=== PATIENT | female | born 1950 | race African-American/Black ===

== ENCOUNTER 2016-07-29 23:14 | Inpatient (IN) | payer MEDICARE, MEDICAID ==
[~2016-07-29] VITALS: Ht 162.6 cm; Wt 44.7 kg
[2016-07-29 23:46] VITALS: Ht 162.6 cm; Wt 44.7 kg
[2016-07-29 23:50] VITALS: TEMP 97.8
[2016-07-29] MEDS ORDERED: SOD CHLORIDE 0.9% 1,000 ML IV STA (23:50)
[2016-07-30] VITALS (12 sets, daily range): BP systolic 114–155; BP diastolic 58–78; PULSE 78–96; RESP 16–22; BMI 16.9
[2016-07-30] MEDS ORDERED: KETOROLAC 15 MG INJ IV STA (00:04)
[2016-07-30 00:53] LABS: ADD SCAN DIFF NO
[2016-07-30 00:55] LABS: BASOPHILS % 0.3 % (0.0-2.0); EOSINOPHILS % 0.4 % (0.0-7.0); HEMATOCRIT 40.4 % (37.0-47.0); HEMOGLOBIN 13.1 g/dl (12.0-16.0); LYMPHOCYTES # 3.2 10^3/ul (0.8-2.9); LYMPHOCYTES % 43.4 % (15.0-51.0); MEAN CORPUSCULAR HEMOGLOBIN 31.4 pg (29.0-33.0); MEAN CORPUSCULAR HGB CONC 32.4 g/dl (32.0-37.0); MEAN CORPUSCULAR VOLUME 96.9 fl (82.0-101.0); MONOCYTE # 0.7 10^3/ul (0.3-0.9); MONOCYTES % 8.8 % (0.0-11.0); NEUTROPHIL # 3.4 10^3/ul (1.6-7.5); NEUTROPHILS % 46.7 % (39.0-77.0); PLATELET COUNT 260 10^3/UL (140-415); RED BLOOD COUNT 4.17 10^6/ul (4.20-5.40); RED CELL DISTRIBUTION WIDTH 12.3 % (11.5-14.5); WHITE BLOOD COUNT 7.4 10^3/ul (4.8-10.8)
[2016-07-30 01:04] LABS: CHLORIDE 103 mmol/L (97-110)
[2016-07-30 01:05] LABS: INR 0.94; PARTIAL THROMBOPLASTIN TIME 25.7 Sec (25.0-35.0); POTASSIUM 3.6 mmol/L (3.5-5.1); PROTIME 12.6 Sec (12.2-14.2); SODIUM 143 mmol/L (135-144)
--- NOTE | 2016-07-30 01:05 | RADRPT ---
PROCEDURE: Portable chest x-ray. CLINICAL INDICATION: Syncope. TECHNIQUE: Portable AP view of the chest. COMPARISON: None. FINDINGS: No pulmonary edema or conolidation is identified. The cardiac silhouette is magnified. There are ao rtic calcifications. No pleural effusion is seen. There is no pneumothorax. IMPRESSION: 1. No evidence of acute cardiopulmonary disease. 2. Aortic atherosclerosis. RPTAT: HTAR .Andres Cruz MD, MD Date Time Electronically viewed and signed by .Andres Cruz MD, on 07/30/2016 01:04 .R/
[2016-07-30 01:07] LABS: CREATININE 0.75 mg/dl (0.44-1.00)
[2016-07-30 01:08] LABS: ANION GAP 16 (8-16); BLOOD UREA NITROGEN 13 mg/dl (7-20); CALCIUM 9.1 mg/dl (8.4-10.2); CARBON DIOXIDE 28 mmol/L (21-31); GLUCOSE 103 mg/dl (70-220)
[2016-07-30 01:21] LABS: TROPONIN-I < 0.012 ng/ml (0.00-0.12)
--- NOTE | 2016-07-30 01:43 | RADRPT ---
PROCEDURE: CT head, without contrast. CLINICAL INDICATION: Syncope. TECHNIQUE: Noncontrast CT examination of the head, with axial, sagittal and coronal reformatted im ages. Automated dose exposure control was employed. CTDI: 44.81 mGy and DLP: 720.23 mGy-cm. COMPARISON: None. FINDINGS: Chronic changes of atrophy and small vessel disease white matter. No acute hemorrhage. Subarachnoid spaces are substantially preserved and symmetric. Ventricles ar e unremarkable. No mass effect. Mahoney-white matter distinction is preserved without evident decreased attenuation t o suggest acute or recent infarct. Mucous retention in the dependent left sphenoid sinus. Sinuses and osseous structures are otherwise unremarkable. IMPRESSION: 1. Mucous retention in the left sphenoid sinus. 2. Chronic changes of atrophy and small vessel disease white matter. 3. Otherwise, no acute process in the head. RPTAT: UU Physician Jak Date Time Electronically viewed and signed by Physician Jak on 07/30/2016 01:43 RS/
--- NOTE | 2016-07-30 02:43 | ERA ---
ER Documentation Chief Complaint Date/Time DATE: 07/30/16 TIME: 02:42 Chief Complaint R39, syncopal episode at home HPI This is a 66-year-old female suffered a syncopal episode at home while having dinner. No chest pain. No fevers or chills. She did notice a blood pressure drop. This happened while she was eating. No palpitations. No other current complaints. ROS All systems reviewed and are negative except as per history of present illness. PMhx/Soc History of Surgery: No Anesthesia Reaction: No Hx Neurological Disorder: No Hx Respiratory Disorders: No Hx Cardiac Disorders: No Hx Psychiatric Problems: Yes (ANIXIETY) Hx Miscellaneous Medical Probl: Yes (MS) Hx Alcohol Use: No Hx Substance Use: No Hx Tobacco Use: No Smoking Status: Never smoker Physical Exam Vitals Vital Signs Date Time Temp Pulse Resp B/P Pulse Ox O2 Delivery O2 Flow Rate FiO2 07/29/16 23:46 97.8 54 16 125/73 100 Physical Exam Const: [] Head: Atraumatic Eyes: Normal Conjunctiva ENT: Normal External Ears, Nose and Mouth. Neck: Full range of motion..~ No meningismus. Resp: Clear to auscultation bilaterally Cardio: Regular rate and rhythm, no murmurs Abd: Soft, non tender, non distended. Normal bowel sounds Skin: No petechiae or rashes Back: No midline or flank tenderness Ext: No cyanosis, or edema Neur: Awake and alert Psych: Normal Mood and Affect Result Diagram: 07/30/16 0022 07/30/16 0022 Results 24 hrs Laboratory Tests Test 07/30/16 00:22 Activated Partial Thromboplast Time 25.7Sec Anion Gap 16 Basophils # 0.010^3/ul Basophils % 0.3% Blood Urea Nitrogen 13mg/dl Calcium Level 9.1mg/dl Carbon Dioxide Level 28mmol/L Chloride Level 103mmol/L Creatinine 0.75mg/dl Eosinophils # 0.010^3/ul Eosinophils % 0.4% Glucose Level 103mg/dl Hematocrit 40.4% Hemoglobin 13.1g/dl INR International Normalized Ratio 0.94 Lymphocytes # 3.210^3/ul Lymphocytes % 43.4% Mean Corpuscular Hemoglobin 31.4pg Mean Corpuscular Hemoglobin Concent 32.4g/dl Mean Corpuscular Volume 96.9fl Mean Platelet Volume 11.0fl Monocytes # 0.710^3/ul Monocytes % 8.8% Neutrophils # 3.410^3/ul Neutrophils % 46.7% Nucleated Red Blood Cells # 0.010^3/ul Nucleated Red Blood Cells % 0.0/100WBC Platelet Count 57097^3/UL Potassium Level 3.6mmol/L Prothrombin Time 12.6Sec Prothrombin Time Ratio 1.0 Red Blood Count 4.1710^6/ul Red Cell Distribution Width 12.3% Sodium Level 143mmol/L Troponin I < 0.012ng/ml White Blood Count 7.410^3/ul Current Medications Medications (Trade) Dose Ordered Sig/Emelina Route PRN Reason Start Time Stop Time Status Last Admin Dose Admin Sodium Chloride (NS) 1,000 ml @ 1,000 mls/hr Q1H STAT IV 07/29/16 23:50 07/30/16 00:49 DC 07/30/16 00:25 Ketorolac Tromethamine (Toradol) 15 mg ONCE STAT IV 07/30/16 00:04 07/30/16 00:05 DC 07/30/16 00:25 Procedures/MDM EKG: Rate/Rhythm: Normal Sinus Rhythm QRS, ST, T-waves: No changes consistent w/ acute ischemia Impression: No evidence of ischemia or arrhythmia Chest X-ray 1V Interpreted by me: Soft Tissue: No acute abnormalities Bones: No acute abnormalities Mediastinum/Cardiac Silhouette/Lungs: No acute abnormalities Patient's syncopal symptoms are unstable at this time and require inpatient workup. No evidence of PE or dissection at this time but occult ischemia or fatal dysrhythmia cannot be ruled out. Departure Diagnosis: Primary Impression: Syncope Qualified Code: R55 - Syncope, unspecified syncope type Condition: Serious MARGAUX BAIRDBrandon Jul 30, 2016 02:43
--- NOTE | 2016-07-30 03:21 | HP ---
Date/Time of Note Date/Time of Note DATE: 07/30/16 TIME: Assessment/Plan VTE Prophylaxis VTE Prophylaxis Intervention: other (Lovenox) Assessment/Plan Assessment/Plan 1) Syncope - Neurologic seems more likely than Cardiac . . . An Absance-type Seizure Qualified Code: R55 - Syncope, unspecified syncope type - Admit to Telemetry - Serial CardiacEnzymes - EEG - Neurology Consult - Cardiology Consult if Indicated 2) Multiple Sclerosis - Continue routine medications HPI/ROS Admit Date/Time Admit Date/Time 07/30/16 0152 Hx of Present Illness Chief Complaint R39, syncopal episode at home HPI This is a 66-year-old female suffered a syncopal episode at home while having dinner in the presence of her daughter who accompanies her now. She was seated in her chair at the table when patient states she started to feel like she was going to pass out. The room was not spinning. No nausea. No chest pain. No fevers or chills. Her daughter states that she leaned back in her chair a bit. Her eyes stayed open, but they rolled uo and to the right and her whole body became stiff. This lasted for a minute or two. Then, she woke up but was confused and incoherent. This lasted about a minute. Patient does not remember any of this. No loss of bowel or bladder control. No tremors or jerking of the extremities. She never fell. Right now, she feels back to normal. She had a similar episode about a week ago, but she was walking and did fall down. No medical attention was sought at that time. ROS General: Admits: Poor Appetite as usual. Has to take medication to have any appetite. Denies: Fever, Chills, Abnormal Weight Loss, Generalized Body Aches Eyes: Admits: Denies: Blurry Vision, Double Vision HENT: Admits: Denies: Ear Pain/Pressure, Runny/Stuffy Nose, Sore Throat Cardiovascular: Admits: Denies: Chest Pain, Palpitations, Leg Swelling Pulmonary: Admits: Denies: Cough, Wheeze, Shortness of Breath Gastrointestinal: Admits: Denies: Abdominal Pain, Nausea, Vomiting, Diarrhea, Blood in Stool, Black-Colored Stool Urogenital: Admits: Denies: Burning with Urination, Urinary Frequency Musculoskeletal: Admits: Denies: Joint Pain, Joint Swelling, Muscle Pain Neurological: Admits: Denies: Headache, Dizziness, Numbness, Tingling, Shooting Pains Integumentary: Admits: Denies: Rash, Itch Endocrine: Admits: Denies: Excessive Thirst, Excessive Hunger, Intolerant to Cold , Intolerant to Heat Psychiatric: Admits: Anxiety Denies: Depression PMH/Family/Social Past Medical History Anxiety; Multiple Sclerosis Past Surgical History Past Surgical Hx: no surgical history Family History Significant Family History: no pertinent family hx Social History Smoking Status: Never smoker Exam/Review of Systems Vital Signs Vitals Vital Signs Date Time Temp Pulse Resp B/P Pulse Ox O2 Delivery O2 Flow Rate FiO2 07/29/16 23:46 97.8 54 16 125/73 100 Exam Exam General: Very slender 66 year old Black female, alert and oriented, in no acute distress Eyes: Sclera White, EOMI HENT: Normocephalic/Atraumatic, External Ears/Nose Normal, Moist Mucus Membranes Neck: Supple, Trachea Midline Cardiovascular: Normal Rate, Normal Rhythm, Normal S1 and S2, No Murmur, No Extra Sounds Pulmonary: Clear to Auscultation Bilaterally, Normal Respiratory Effort, No Rales, Rhonchi or Wheezes Gastrointestinal: Normoactive Bowel Sounds, Soft, Non-Tender/Non-Distended, No Hepatosplenomegaly Appreciated, No Pulsatile Masses Urogenital: Deferred Musculoskeletal: Decreased Muscle Bulk and Normal Tone. Bilateral UE/LE strength +5/5 and equal, including hand quality control specialist strength. Neurological: CN II - XII Intact, Non-Focal, Speech Normal Integumentary: Normal Moisture and Temperature, Good Turgor, No Jaundice, No Rash Lymphatic: No Cervical Lymphadenopathy Psychiatric: Appropriate Mood and Affect, Good Eye Contact Labs Result Diagram: 07/30/16 0022 07/30/16 0022 Medications Medications Current Medications Medications (Trade) Dose Ordered Sig/Emelina Route PRN Reason Start Time Stop Time Status Last Admin Dose Admin Sodium Chloride (NS) 1,000 ml @ 1,000 mls/hr Q1H STAT IV 07/29/16 23:50 07/30/16 00:49 DC 07/30/16 00:25 Ketorolac Tromethamine (Toradol) 15 mg ONCE STAT IV 07/30/16 00:04 07/30/16 00:05 DC 07/30/16 00:25 Procedures Procedures Laboratory Tests Test 07/30/16 00:22 Activated Partial Thromboplast Time 25.7Sec Anion Gap 16 Basophils # 0.010^3/ul Basophils % 0.3% Blood Urea Nitrogen 13mg/dl Calcium Level 9.1mg/dl Carbon Dioxide Level 28mmol/L Chloride Level 103mmol/L Creatinine 0.75mg/dl Eosinophils # 0.010^3/ul Eosinophils % 0.4% Glucose Level 103mg/dl Hematocrit 40.4% Hemoglobin 13.1g/dl INR International Normalized Ratio 0.94 Lymphocytes # 3.210^3/ul Lymphocytes % 43.4% Mean Corpuscular Hemoglobin 31.4pg Mean Corpuscular Hemoglobin Concent 32.4g/dl Mean Corpuscular Volume 96.9fl Mean Platelet Volume 11.0fl Monocytes # 0.710^3/ul Monocytes % 8.8% Neutrophils # 3.410^3/ul Neutrophils % 46.7% Nucleated Red Blood Cells # 0.010^3/ul Nucleated Red Blood Cells % 0.0/100WBC Platelet Count 62611^3/UL Potassium Level 3.6mmol/L Prothrombin Time 12.6Sec Prothrombin Time Ratio 1.0 Red Blood Count 4.1710^6/ul Red Cell Distribution Width 12.3% Sodium Level 143mmol/L Troponin I < 0.012ng/ml White Blood Count 7.410^3/ul EKG: Interpreted by ER physician Rate/Rhythm: Normal Sinus Rhythm QRS, ST, T-waves: No changes consistent w/ acute ischemia Impression: No evidence of ischemia or arrhythmia RADIOLOGY: PROCEDURE: CT head, without contrast. CLINICAL INDICATION: Syncope. TECHNIQUE: Noncontrast CT examination of the head, with axial, sagittal and coronal reformatted images. Automated dose exposure control was employed. CTDI: 44.81 mGy and DLP: 720.23 mGy-cm. COMPARISON: None. FINDINGS: Chronic changes of atrophy and small vessel disease white matter. No acute hemorrhage. Subarachnoid spaces are substantially preserved and symmetric. Ventricles are unremarkable. No mass effect. Mahoney-white matter distinction is preserved without evident decreased attenuation to suggest acute or recent infarct. Mucous retention in the dependent left sphenoid sinus. Sinuses and osseous structures are otherwise unremarkable. IMPRESSION: 1. Mucous retention in the left sphenoid sinus. 2. Chronic changes of atrophy and small vessel disease white matter. 3. Otherwise, no acute process in the head. PROCEDURE: Portable chest x-ray. CLINICAL INDICATION: Syncope. TECHNIQUE: Portable AP view of the chest. COMPARISON: None. FINDINGS: No pulmonary edema or conolidation is identified. The cardiac silhouette is magnified. There are aortic calcifications. No pleural effusion is seen. There is no pneumothorax. IMPRESSION: 1. No evidence of acute cardiopulmonary disease. 2. Aortic atherosclerosis. GIORGI LEDEZMA DO Jul 30, 2016 03:21
[2016-07-30] MEDS ORDERED: AMI25 PO (04:23)
[2016-07-30] MEDS ORDERED: AZOP1OP10 BOTH EYES (04:23)
[2016-07-30] MEDS ORDERED: HYDR-902 PO (04:23)
[2016-07-30] MEDS ORDERED: NACL 0.9% 3 ML SYG IV SCH ×2 (05:00)
[2016-07-30] MEDS ORDERED: ACETAMINOPHEN 325 MG TAB PO PRN (05:00)
[2016-07-30] MEDS ORDERED: ONDANSETRON 4 MG TAB PO PRN (05:00)
[2016-07-30] MEDS: HYDROCODONE/APAP (10/325) TAB PO PRN ×3 (05:31→22:33)
[2016-07-30 08:45] LABS: CREATINE KINASE 52 IU/L (23-200)
[2016-07-30 08:54] LABS: CK-MB 0.35 ng/ml (0.0-2.4)
[2016-07-30 08:59] LABS: TROPONIN-I < 0.012 ng/ml (0.00-0.12)
[2016-07-30] MEDS: ENOXAPARIN 40 MG/0.4 ML SYG SC SCH (09:00)
[2016-07-30] MEDS: BRINZOLAMIDE 1% 10ML OPH BOTH EYES SCH ×2 (09:21→21:32)
--- NOTE | 2016-07-30 11:42 | EN ---
Date/Time of Note Date/Time of Note DATE: 07/30/16 TIME: 11:41 Event Note Medicine Medicine Event Note Patient stable following admission No further syncopal episodes Currently remained stable denies headache or chest pain Vital signs within normal limits GENERAL: Thin elderly -[place] lady awake alert oriented comfortable at rest VITAL SIGNS: per chart NECK: Supple. No JVD or lymphadenopathy. CARDIAC EXAM: S1, S2. No added sounds or murmurs. CHEST: clear bilaterally, No added sounds, rales or wheezes ABDOMEN: Soft, nontender. No guarding or rebound. EXTREMITIES: No cyanosis, clubbing or edema. NEUROLOGIC: Generalized weakness. No focal deficits. Assessment 1. History of MS 2. Syncopal episode possibly vasovagal Plan 1. Neurology evaluation 2. Echocardiogram and carotid Dopplers 3. Anticipate discharge once cleared by neurology and normal vascular studies. 4. Follow-up with primary care physician ADDI AREVALO MD, [facility] Jul 30, 2016 11:42
[2016-07-30 12:30] LABS: CREATINE KINASE 47 IU/L (23-200)
[2016-07-30 12:39] LABS: CK-MB 0.27 ng/ml (0.0-2.4)
[2016-07-30 12:43] LABS: TROPONIN-I < 0.012 ng/ml (0.00-0.12)
--- NOTE | 2016-07-30 12:49 | RADRPT ---
PROCEDURE: US Carotids. CLINICAL INDICATION: bruit , syncope TECHNIQUE: Multiple sonographic of the carotid bifurcation region and vertebral arteries were obta ined utilizing laguna scale, duplex and color-flow imaging. The images were reviewed on a PACS worksta tion. COMPARISON: No prior studies are available for comparison. FINDINGS: Evaluation of the right carotid bifurcation region reveals mild calcific atherosclerotic disease. Evaluation of the left carotid bifurcation region reveals mild calcific atherosclerotic disease. The re is moderate soft plaque as well. There is a 45% stenosis in the left carotid bulb region. There is antegrade flow within the vertebral arteries bilaterally. RIGHT CAROTID MEASUREMENTS: Common Carotid Oemuor55.9 (cm/sec) Internal Carotid Artery - cmxrvvki64.9 (cm/sec) Internal Carotid Artery - mid60.8 (cm/sec) Internal Carotid Artery - oyalap23.9 (cm/sec) Internal Carotid/Common Carotid0.79 LEFT CAROTID MEASUREMENTS: Common Carotid Fkvndr34.8 (cm/sec) Internal Carotid Artery - ytmwhibh89.9 (cm/sec) Internal Carotid Artery - mid52.7 (cm/sec) Internal Carotid Artery - .3 (cm/sec) Internal Carotid/Common Carotid0.95 RPTAT: AA IMPRESSION: Mild calcific plaque bilaterally. Moderate soft plaque in the left carotid bulb region with a 45% stenosis. No evidence for hemodynamically significant stenosis in the bilateral internal carotid arteries - va lidated velocity measurements with angiographic measurements, velocity criteria are extrapolated fro m diameter data as defined by the Society of Radiologists in Ultrasound Consensus Conference Radiolo gy 2003; 229;340-346. This study does indirectly reference the measurement of the distal ICA diamet er as the denominator for stenosis measurement. Normal antegrade flow in the vertebral arteries bilaterally. .Shady Gutierrez MD, Date Time Electronically viewed and signed by .Shady Gutierrez MD, MD on 07/30/2016 12:48 .S/
--- NOTE | 2016-07-30 17:06 | RADRPT ---
Echocardiogram Report Patient Name: RAMBO BLACK Gender: Female Date: 1950 Study Date: 30-Jul-2016 Electrical [employer] Engineers: Carlos Aden [facility] Location: 5552 Ref. Physician: ADDI AREVALO Quality: Good Procedures: Transthoracic echocardiogram with complete 2D, M-Mode, and doppler examination. Indications: Syncope. 2D/M Mode Doppler Measurement Value Normal Ranges Measurement Value Normal Ranges LVIDd 2D 2.7 3.5 - 5.6 cm AV Peak [place] 1.3 m/sec LVIDs 2D 1.7 2.1 - 4.1 cm AV Peak PG 6.7 mmHg LVPWd 2D 0.7 0.6 - 1.1 cm LVOT [place] 0.9 m/sec IVSd 2D 1.0 0.6 - 1.1 cm LVOT Peak PG 3.6 mmHg AoR Diam 2D 2.5 2.0 - 3.7 cm MV E [place] 0.7 m/sec EDV 2D 26.9 cm3 MV A [place] 0.8 m/sec ESV 2D 5.2 cm3 MV E/A 0.9 LA Dimen 2D 2.3 2.3 - 4.0 cm MV Decel Time 191 msec MV Decel [place] 4 MV E/A 0.9 TR Peak [place] 2.0 m/sec TR Peak PG 15.7 mmHg RVSP 19.0 mmHg Findings Left Ventricle: Normal left ventricular systolic function. Normal left ventricular cavity size. Normal left ventricular wall thickness. Ejection fraction is visually estimated at 65 %. Tissue Doppler/Mitral Doppler indices are consistent with impaired relaxation (Stage I diastolic dysfunction). Right Ventricle: Normal right ventricular size. Normal right ventricular systolic function. Left Atrium: The left atrium is normal in size. Right Atrium: The right atrium is normal in size. Mitral Valve: Mild mitral leaflet calcification. Mild mitral annular calcification. Trace mitral regurgitation. Aortic Valve: Normal appearance of the aortic valve. No significant aortic stenosis or insufficiency. Tricuspid Valve: Normal appearance of the tricuspid valve. Estimated peak PA systolic pressure 19 mmHg. There is trace tricuspid regurgitation. Pulmonic Valve: Pulmonic valve not well visualized. Pericardium: Normal pericardium with no significant pericardial effusion. Aorta: Normal aortic root. IVC: Normal size and normal respiratory collapse consistent with normal right atrial pressure. Conclusions 1.Normal left ventricular systolic function. Normal left ventricular cavity size. Normal left ventricular wall thickness. Ejection fraction is visually estimated at 65 %. Tissue Doppler/Mitral Doppler indices are consistent with impaired relaxation (Stage I diastolic dysfunction). 2.Normal right ventricular size. Normal right ventricular systolic function. 3.The left atrium is normal in size. 4.The right atrium is normal in size. 5.No significant valvular stenosis or regurgitation seen. 6.Normal pericardium with no significant pericardial effusion. Electronically Signed By: Osiel Moore 30-Jul-2016 17:05:27 -0700 Patient Name: RAMBO BLACK Study Date: 30-Jul-2016 [id number]
--- NOTE | 2016-07-30 20:28 | NEURPT ---
DATE: 07/30/2016 ELECTROENCEPHALOGRAM INDICATION: A 66-year-old lady status post syncope. DESCRIPTION OF PROCEDURE: Routine EEG was recorded digitally. Qymwt-hu-xluay and pacxj-jk-xbu robyn ages were recorded and reviewed. All impedances were measured and recorded. Cap electrodes were pl aced in accordance with International 10-20 system of electrode placement. FINDINGS: Symmetrically distributed background activity of low amplitude ranging in frequency betwe en 9 to 11 cycles per second was seen most of the awake recording. This activity attenuates with ey e opening. Photic stimulation produces no definite driving. When the patient gets drowsy and falls asleep, background rhythm gets slightly less organized. Occasional slowing of background, 2 to 4 c ycles per second noted. No epileptiform transients were seen. No signs of ongoing electrographic s eizures or lateralized slowing. IMPRESSION: Normal study. Please correlate clinically. Dictated By: МАРИЯ YEBOAH/KEVIN Conf#: [id number] DID#: [id number]
[2016-07-30] MEDS: AMITRIPTYLINE 25 MG TAB PO SCH (21:32)
--- NOTE | 2016-07-30 22:47 | CONS ---
DATE OF ADMISSION: 07/30/2016 DATE OF CONSULTATION: 07/30/2016 TYPE OF CONSULTATION: Neurology. Thank you, Dr. Ramsey, for your kind referral for evaluation of syncope. HISTORY OF PRESENT ILLNESS: The patient is a 66-year-old lady with past medical history of multiple sclerosis diagnosed in 2003, but according to the patient, likely she had symptoms even earlier than this. Patient states that she gets relapsing/remitting type of disease, no recent exacerbations. She is not on any disease-modifying treatment for multiple sclerosis because she does not want to take them. The patient had a syncopal episode while she started having dinner. She stated that she felt dizzy, hot, like she was about to faint, and then she did pass out. According to the family member who witnessed the episode, the patient had some extensor posturing , but no jerk-like movements and was "out for 1-2 minutes," and then she regained consciousness. In the last several years, she had about 2 more syncopal episodes, one was related to use of a laxative. No prior history of seizures. The patient already had EEG, which did not show any acute abnormality. In the hospital, the patient had CT scan of the head, was read as atrophy and white matter disease, but no acute abnormality. Carotid ultrasound was done showing mild calcified bilateral plaques, moderate soft plaque in the left carotid bulb, 45% stenosis. Chest x-ray: No acute abnormality. The patient's labs shows essentially normal CBC. Basic metabolic panel: BUN 13, creatinine 0.75. Normal CK level, negative troponins. Normal PT and PTT. ALLERGIES: PATIENT IS ALLERGIC TO: 1. PENICILLIN. 2. IBUPROFEN. SOCIAL HISTORY: No alcohol, tobacco, drug use. FAMILY HISTORY: Noncontributory. She had an EKG that shows sinus rhythm, as well as echocardiogram which shows 65 % ejection fraction. MEDICATIONS: Prior to admission include: Elavil 25 mg and [place]. Patient stated that she has chronic back pain. All medicines are old and she did not have any new medications recently. PHYSICAL EXAMINATION: VITAL SIGNS: Temperature 98.1, pulse 78, respirations 16, blood pressure 114/ 78. GENERAL: Not in acute distress, lying in bed. HEENT: Normocephalic, atraumatic head. NECK: No carotid bruits. No thyromegaly. LUNGS: Clear to auscultation bilaterally. CARDIAC: Normal cardiac rhythm and sounds. ABDOMEN: Soft, nontender. EXTREMITIES: No cyanosis, clubbing, or edema. NEUROLOGIC: She is awake, alert, and oriented x3, with fluent speech. Cranial nerve examination shows intact visual metzger in the left eye. The patient has right-sided blindness. Pupils fixed about 3 mm on the right, reactive from 3 to 2 mm on the left. Extraocular movements seem to be intact. Mild divergent strabismus noticed. Nonsustained end gaze, left beating nystagmus was noticed on the extreme of the left gaze. Symmetrical face, preserved facial strength and sensation. Tongue is in midline. Palate elevates symmetrically. Motor strength examination seems to be preserved in all extremities. Normal bulk, tone, and strength. Sensory examination intact to light touch and pain, some diminution of vibration noticed in the left foot. Deep tendon reflexes 2+ upper extremities and knees present. Right ankle jerk and absent left. Coordination preserved on ydixha-rn-fujfzh testing. No dysmetria or tremor. Gait was not assessed. According to the patient, at baseline she ambulates with a walker. IMPRESSION: 1. Syncopal episode preceded by short-lasting presyncope. This occurred during dinner, possibly vasovagal etiology. The patient is on telemetry, so possible dysrhythmias would be picked up. 2. History of multiple sclerosis, relapsing/remitting type, is not on any disease-modifying treatment, no recent exacerbations. Patient does not want any disease-modifying medications. PLAN: Continue current treatment. No other recommendations so far. Dictated By: МАРИЯ YEBOAH/KEVIN Conf#: [id number] DID#: [id number] [id number]
[2016-07-31] VITALS (18 sets, daily range): BP systolic 117–196; BP diastolic 56–83; PULSE 71–102; RESP 16–20
[2016-07-31 08:32] LABS: ADD SCAN DIFF NO
[2016-07-31 08:37] LABS: HEMATOCRIT 43.4 % (37.0-47.0); MEAN CORPUSCULAR HEMOGLOBIN 31.5 pg (29.0-33.0); MEAN CORPUSCULAR HGB CONC 32.3 g/dl (32.0-37.0); MEAN CORPUSCULAR VOLUME 97.7 fl (82.0-101.0); MEAN PLATELET VOLUME 11.1 fl (7.4-10.4); PLATELET COUNT 250 10^3/UL (140-415); RED BLOOD COUNT 4.44 10^6/ul (4.20-5.40); RED CELL DISTRIBUTION WIDTH 12.3 % (11.5-14.5)
[2016-07-31 09:00] LABS: CREATININE 0.83 mg/dl (0.44-1.00)
[2016-07-31] MEDS: ENOXAPARIN 40 MG/0.4 ML SYG SC SCH (09:00)
[2016-07-31] MEDS: BRINZOLAMIDE 1% 10ML OPH BOTH EYES SCH ×2 (09:29→21:03)
[2016-07-31] MEDS: HYDROCODONE/APAP (10/325) TAB PO PRN ×2 (10:27→17:52)
[2016-07-31 11:25] LABS: LYMPHOCYTES # 2.6 10^3/ul (0.8-2.9); MONOCYTE # 0.4 10^3/ul (0.3-0.9); MYELOCYTES # 0.1; NEUTROPHIL # 1.8 10^3/ul (1.6-7.5)
[2016-07-31] MEDS: DEXTROSE 5%-0.9% NACL 1,000 ML IV SCH ×2 (13:25→22:30)
--- NOTE | 2016-07-31 14:47 | CONS ---
Date/Time of Note Date/Time of Note DATE: 07/31/16 TIME: 14:40 Assessment/Plan Assessment/Plan Additional Assessment/Plan Syncope Preserved ejection fraction Multiple sclerosis Medical marijuana use -Telemetry reviewed with brief episodes of sinus tachycardia. Otherwise no malignant arrhythmias seen. Serial ECGs without any significant abnormalities, troponins serially are negative, echocardiogram within normal limits. Patient does have a history of these episodes over the past few years and possibly attributed to multiple sclerosis. She denies any further symptoms. Would consider outpatient event monitor. Consultation Date/Type/Reason Admit Date/Time 07/30/16 0152 Type of Consultation: cv Reason for Consultation Syncope Hx of Present Illness This is a 66-year-old female with history of MS who presents with syncope. Patient was eating dinner, and after a few bites, felt warm and lightheaded and then passed out. No chest pain, palpitations or shortness of breath prior. Patient states her family told her she was out for 1-2 minutes. Patient woke up and felt back to baseline. This is happened to the patient before approximately 3 episodes in the past 2-3 years. She denies dizziness or lightheadedness with standing up or with activity. She does ambulate with a walker. She denies exertional chest pain or shortness of breath. She denies any fevers or chills. 12 point review of systems was performed with all pertinent positives and negatives mentioned above and all else is negative Past Medical History Multiple sclerosis Past Surgical History Eye surgery Family History Significant Family History: no pertinent family hx Social History Alcohol Use: none Smoking Status: Never smoker Drug Use: marijuana Exam/Review of Systems Vital Signs Vitals Vital Signs Date Time Temp Pulse Resp B/P Pulse Ox O2 Delivery O2 Flow Rate FiO2 07/31/16 12:50 91 20 140/82 96 Room Air 07/31/16 11:50 98.3 Intake and Output 07/30/16 07/30/16 07/31/16 15:00 23:00 07:00 Intake Total 80 ml 820 ml 240 ml Balance 80 ml 820 ml 240 ml Exam No apparent distress Constitutional: alert, frail, oriented Head: normocephalic Neck: supple Respiratory: other (Coarse breath sounds bilaterally, no wheezing) Cardiovascular: other (S1-S2 heard), regular rate and rhythm Gastrointestinal: bowel sounds, non-tender, other (No guarding), soft Extremities: other (No edema or cyanosis) Results Result Diagram: 07/31/16 0702 07/31/16 0702 Results 24 hrs Laboratory Tests Test 07/31/16 07:02 White Blood Count 5.0 # Red Blood Count 4.44 Hemoglobin 14.0 Hematocrit 43.4 Mean Corpuscular Volume 97.7 Mean Corpuscular Hemoglobin 31.5 Mean Corpuscular Hemoglobin Concent 32.3 Red Cell Distribution Width 12.3 Platelet Count 250 Mean Platelet Volume 11.1 H Neutrophils % 35.0 L Lymphocytes % 51.0 Reactive Lymphocytes % 5.0 Monocytes % 7.0 Myelocytes % 2.0 H Neutrophils # 1.8 Lymphocytes # 2.6 Monocytes # 0.4 Myelocytes # 0.1 Sodium Level 145 H Potassium Level 4.0 Chloride Level 104 Carbon Dioxide Level 30 Anion Gap 15 Blood Urea Nitrogen 13 Creatinine 0.83 Glucose Level 80 Calcium Level 10.0 Medications Medications Current Medications Ondansetron HCl (Zofran Tab) 4 mg Q6H PRN PO NAUSEA AND/OR VOMITING; Start at 05:00 Acetaminophen (Tylenol Tab) 650 mg Q6H PRN PO PAIN LEVEL 1-3 OR FEVER; Start at 05:00 Enoxaparin Sodium (Lovenox) 40 mg DAILY SC ; Start 07/30/16 at 09:00 Amitriptyline HCl (Elavil) 25 mg HS PO Last administered on 07/30/16 21:32; Admin Dose 25 MG; Start 07/30/16 at 21:00 Brinzolamide (Azopt) 1 drop BID BOTH EYES Last administered on 07/31/16 09:29 ; Admin Dose 1 DROP; Start 07/30/16 at 09:00 Acetaminophen/ Hydrocodone Bitart 1 tab 1 tab Q4H PRN PO PAIN Last administered on 07/31/16 10:27; Admin Dose 1 TAB; Start 07/30/16 at 05:00 Dextrose/Sodium Chloride (D5-NS) 1,000 ml @ 100 mls/hr Q10H IV Last administered on 07/31/16 13:25; Admin Dose 100 MLS/HR; Start 07/31/16 at 12:30 Procedures Procedures ECG demonstrates sinus rhythm at 87 bpm, QRS 80 ms, no significant ischemic STT wave abnormalities Osiel Moore DO Jul 31, 2016 14:47
--- NOTE | 2016-07-31 18:59 | PN ---
Date/Time of Note Date/Time of Note DATE: 07/31/16 TIME: 18:57 Assessment/Plan VTE Prophylaxis VTE Prophylaxis Intervention: SCD's Lines/Catheters IV Catheter Type (from Nrsg): Saline Lock Assessment/Plan Assessment/Plan 1) Syncope - Neurologic seems more likely than Cardiac . . . An Absance-type Seizure s/p Neurology and cardiology consult SYmptomatic tachycardia 2) Multiple Sclerosis - Continue routine medications Carotid doppler US, ECHO, IVF, Cardiology cosult to seee pt due to tachycardi with HR upto 150s Subjective 24 Hr Interval Summary Free Text/Dictation feelign dizzy, HR upto 150s with ambulation Exam/Review of Systems Vital Signs Vitals Vital Signs Date Time Temp Pulse Resp B/P Pulse Ox O2 Delivery O2 Flow Rate FiO2 07/31/16 16:15 83 07/31/16 15:35 133/74 07/31/16 15:20 98.0 19 100 07/31/16 12:50 Room Air Intake and Output 07/30/16 07/30/16 07/31/16 15:00 23:00 07:00 Intake Total 80 ml 820 ml 240 ml Balance 80 ml 820 ml 240 ml Results Result Diagram: 07/31/16 0702 07/31/16 0702 Results 24 hrs Laboratory Tests Test 07/31/16 07:02 White Blood Count 5.0 # Red Blood Count 4.44 Hemoglobin 14.0 Hematocrit 43.4 Mean Corpuscular Volume 97.7 Mean Corpuscular Hemoglobin 31.5 Mean Corpuscular Hemoglobin Concent 32.3 Red Cell Distribution Width 12.3 Platelet Count 250 Mean Platelet Volume 11.1 H Neutrophils % 35.0 L Lymphocytes % 51.0 Reactive Lymphocytes % 5.0 Monocytes % 7.0 Myelocytes % 2.0 H Neutrophils # 1.8 Lymphocytes # 2.6 Monocytes # 0.4 Myelocytes # 0.1 Sodium Level 145 H Potassium Level 4.0 Chloride Level 104 Carbon Dioxide Level 30 Anion Gap 15 Blood Urea Nitrogen 13 Creatinine 0.83 Glucose Level 80 Calcium Level 10.0 Medications Medications Current Medications Ondansetron HCl (Zofran Tab) 4 mg Q6H PRN PO NAUSEA AND/OR VOMITING; Start at 05:00 Acetaminophen (Tylenol Tab) 650 mg Q6H PRN PO PAIN LEVEL 1-3 OR FEVER; Start at 05:00 Enoxaparin Sodium (Lovenox) 40 mg DAILY SC ; Start 07/30/16 at 09:00 Amitriptyline HCl (Elavil) 25 mg HS PO Last administered on 07/30/16 21:32; Admin Dose 25 MG; Start 07/30/16 at 21:00 Brinzolamide (Azopt) 1 drop BID BOTH EYES Last administered on 07/31/16 09:29 ; Admin Dose 1 DROP; Start 07/30/16 at 09:00 Acetaminophen/ Hydrocodone Bitart 1 tab 1 tab Q4H PRN PO PAIN Last administered on 07/31/16 17:52; Admin Dose 1 TAB; Start 07/30/16 at 05:00 Dextrose/Sodium Chloride (D5-NS) 1,000 ml @ 100 mls/hr Q10H IV Last administered on 07/31/16 13:25; Admin Dose 100 MLS/HR; Start 07/31/16 at 12:30 DUGLAS YANG MD Jul 31, 2016 18:59
[2016-07-31] MEDS: AMITRIPTYLINE 25 MG TAB PO SCH (21:03)
[2016-08-01] VITALS (13 sets, daily range): BP systolic 124–180; BP diastolic 60–112; PULSE 81–114; RESP 18–83
[2016-08-01 07:47] LABS: ADD SCAN DIFF NO
[2016-08-01 07:54] LABS: BASOPHILS % 0.4 % (0.0-2.0); EOSINOPHILS % 0.7 % (0.0-7.0); HEMOGLOBIN 13.2 g/dl (12.0-16.0); LYMPHOCYTES # 2.6 10^3/ul (0.8-2.9); LYMPHOCYTES % 49.3 % (15.0-51.0); MEAN CORPUSCULAR HEMOGLOBIN 31.4 pg (29.0-33.0); MEAN CORPUSCULAR HGB CONC 32.2 g/dl (32.0-37.0); MEAN CORPUSCULAR VOLUME 97.4 fl (82.0-101.0); MEAN PLATELET VOLUME 11.6 fl (7.4-10.4); MONOCYTE # 0.6 10^3/ul (0.3-0.9); MONOCYTES % 10.4 % (0.0-11.0); NEUTROPHIL # 2.1 10^3/ul (1.6-7.5); PLATELET COUNT 197 10^3/UL (140-415); RED BLOOD COUNT 4.21 10^6/ul (4.20-5.40); RED CELL DISTRIBUTION WIDTH 12.3 % (11.5-14.5); WHITE BLOOD COUNT 5.4 10^3/ul (4.8-10.8)
[2016-08-01 08:05] LABS: INR 0.93; PROTIME 12.5 Sec (12.2-14.2)
[2016-08-01 08:06] LABS: PARTIAL THROMBOPLASTIN TIME 30.1 Sec (25.0-35.0)
[2016-08-01 08:17] LABS: MAGNESIUM 2.2 mg/dl (1.7-2.5); PHOSPHORUS 3.6 mg/dl (2.5-4.9)
[2016-08-01 08:20] LABS: POTASSIUM 4.4 mmol/L (3.5-5.1)
[2016-08-01 08:23] LABS: CREATININE 0.71 mg/dl (0.44-1.00)
[2016-08-01 08:24] LABS: CALCIUM 9.5 mg/dl (8.4-10.2)
[2016-08-01] MEDS: DEXTROSE 5%-0.9% NACL 1,000 ML IV SCH (08:30)
[2016-08-01] MEDS: ENOXAPARIN 40 MG/0.4 ML SYG SC SCH (09:00)
[2016-08-01] MEDS: BRINZOLAMIDE 1% 10ML OPH BOTH EYES SCH (09:41)
--- NOTE | 2016-08-01 10:16 | PN ---
Date/Time of Note Date/Time of Note DATE: 08/01/16 TIME: 10:13 Assessment/Plan VTE Prophylaxis VTE Prophylaxis Intervention: SCD's Lines/Catheters IV Catheter Type (from Nrs): Saline Lock Assessment/Plan Assessment/Plan 1) Syncope -neurogenic vs vasovagal s/p Neurology and cardiology consult Symptomatic tachycardia 2) Multiple Sclerosis - Continue routine medications Carotid doppler US showed 45% stenosis,, ECHO showed preserved EF, IVF, HR in 90s will check Orthostatic and ambulatory HR Appreciate Cardiology help Subjective 24 Hr Interval Summary Free Text/Dictation pt stable, no dizziness Exam/Review of Systems Vital Signs Vitals Vital Signs Date Time Temp Pulse Resp B/P Pulse Ox O2 Delivery O2 Flow Rate FiO2 08/01/16 08:23 94 08/01/16 07:56 98.8 19 152/68 98 07/31/16 12:50 Room Air Intake and Output 07/31/16 07/31/16 08/01/16 15:00 23:00 07:00 Intake Total 1400 ml 470 ml Output Total 650 ml 1300 ml Balance 750 ml -830 ml Exam Alert, Awake PEERLA< EOMI No JVD Clear BS S1 S2 RRR soft, NT no C/C/E Results Result Diagram: 08/01/16 0712 08/01/16 0712 Results 24 hrs Laboratory Tests Test 08/01/16 07:12 White Blood Count 5.4 Red Blood Count 4.21 Hemoglobin 13.2 Hematocrit 41.0 Mean Corpuscular Volume 97.4 Mean Corpuscular Hemoglobin 31.4 Mean Corpuscular Hemoglobin Concent 32.2 Red Cell Distribution Width 12.3 Platelet Count 197 # Mean Platelet Volume 11.6 H Neutrophils % 39.0 Lymphocytes % 49.3 Monocytes % 10.4 Eosinophils % 0.7 Basophils % 0.4 Nucleated Red Blood Cells % 0.0 Neutrophils # 2.1 Lymphocytes # 2.6 Monocytes # 0.6 Eosinophils # 0.0 Basophils # 0.0 Nucleated Red Blood Cells # 0.0 Prothrombin Time 12.5 Prothrombin Time Ratio 1.0 INR International Normalized Ratio 0.93 Activated Partial Thromboplast Time 30.1 Sodium Level 144 Potassium Level 4.4 Chloride Level 105 Carbon Dioxide Level 29 Anion Gap 14 Blood Urea Nitrogen 11 Creatinine 0.71 Glucose Level 83 Calcium Level 9.5 Phosphorus Level 3.6 Magnesium Level 2.2 Medications Medications Current Medications Ondansetron HCl (Zofran Tab) 4 mg Q6H PRN PO NAUSEA AND/OR VOMITING; Start at 05:00 Acetaminophen (Tylenol Tab) 650 mg Q6H PRN PO PAIN LEVEL 1-3 OR FEVER; Start at 05:00 Enoxaparin Sodium (Lovenox) 40 mg DAILY SC ; Start 07/30/16 at 09:00 Amitriptyline HCl (Elavil) 25 mg HS PO Last administered on 07/31/16 21:03; Admin Dose 25 MG; Start 07/30/16 at 21:00 Brinzolamide (Azopt) 1 drop BID BOTH EYES Last administered on 08/01/16 09:41 ; Admin Dose 1 DROP; Start 07/30/16 at 09:00 Acetaminophen/ Hydrocodone Bitart 1 tab 1 tab Q4H PRN PO PAIN Last administered on 07/31/16 17:52; Admin Dose 1 TAB; Start 07/30/16 at 05:00 Dextrose/Sodium Chloride (D5-NS) 1,000 ml @ 100 mls/hr Q10H IV Last administered on 07/31/16 13:25; Admin Dose 100 MLS/HR; Start 07/31/16 at 12:30 DUGLAS YANG MD Aug 01, 2016 10:16
--- NOTE | 2016-08-01 11:49 | CONS ---
Date/Time of Note Date/Time of Note DATE: 08/01/16 TIME: 11:46 Assessment/Plan Assessment/Plan Additional Assessment/Plan Syncope Preserved ejection fraction Multiple sclerosis Hypertension with labile blood pressure Medical marijuana use -Echocardiogram within normal limits, telemetry reviewed with no malignant arrhythmias. Patient with episodes of hypertension but also does have episodes of hypotension. Given her presentation of syncope and issues of orthostatic hypotension, I am concerned of starting an antihypertensive at the current time. Furthermore, she has been refusing medications and IV fluids. Would monitor blood pressure trend. Consultation Date/Type/Reason Admit Date/Time Jul 31, 2016 at 14:59 Initial Consult Date Type of Consultation: cv 24 HR Interval Summary Free Text/Dictation Denies chest pain, shortness of breath or palpitations. Up and walking in the room today with no symptoms of dizziness or lightheadedness Exam/Review of Systems Vital Signs Vitals Vital Signs Date Time Temp Pulse Resp B/P Pulse Ox O2 Delivery O2 Flow Rate FiO2 08/01/16 11:14 108 180/93 08/01/16 10:29 99 Room Air 08/01/16 07:56 98.8 19 Intake and Output 07/31/16 07/31/16 08/01/16 15:00 23:00 07:00 Intake Total 1400 ml 470 ml Output Total 650 ml 1300 ml Balance 750 ml -830 ml Exam No apparent distress, walking in the room Constitutional: alert, oriented Head: normocephalic Neck: supple Respiratory: clear to auscultation, normal air movement Cardiovascular: other (S1-S2 heard), regular rate and rhythm Gastrointestinal: bowel sounds, non-tender, other (No guarding), soft Extremities: other (No edema or cyanosis) Results Result Diagram: 08/01/1671108/01/16711 Results 24 hrs Laboratory Tests Test 08/01/16 07:12 White Blood Count 5.4 Red Blood Count 4.21 Hemoglobin 13.2 Hematocrit 41.0 Mean Corpuscular Volume 97.4 Mean Corpuscular Hemoglobin 31.4 Mean Corpuscular Hemoglobin Concent 32.2 Red Cell Distribution Width 12.3 Platelet Count 197 # Mean Platelet Volume 11.6 H Neutrophils % 39.0 Lymphocytes % 49.3 Monocytes % 10.4 Eosinophils % 0.7 Basophils % 0.4 Nucleated Red Blood Cells % 0.0 Neutrophils # 2.1 Lymphocytes # 2.6 Monocytes # 0.6 Eosinophils # 0.0 Basophils # 0.0 Nucleated Red Blood Cells # 0.0 Prothrombin Time 12.5 Prothrombin Time Ratio 1.0 INR International Normalized Ratio 0.93 Activated Partial Thromboplast Time 30.1 Sodium Level 144 Potassium Level 4.4 Chloride Level 105 Carbon Dioxide Level 29 Anion Gap 14 Blood Urea Nitrogen 11 Creatinine 0.71 Glucose Level 83 Calcium Level 9.5 Phosphorus Level 3.6 Magnesium Level 2.2 Medications Medications Current Medications Ondansetron HCl (Zofran Tab) 4 mg Q6H PRN PO NAUSEA AND/OR VOMITING; Start at 05:00 Acetaminophen (Tylenol Tab) 650 mg Q6H PRN PO PAIN LEVEL 1-3 OR FEVER; Start at 05:00 Enoxaparin Sodium (Lovenox) 40 mg DAILY SC ; Start 07/30/16 at 09:00 Amitriptyline HCl (Elavil) 25 mg HS PO Last administered on 07/31/16 21:03; Admin Dose 25 MG; Start 07/30/16 at 21:00 Brinzolamide (Azopt) 1 drop BID BOTH EYES Last administered on 08/01/16 09:41 ; Admin Dose 1 DROP; Start 07/30/16 at 09:00 Acetaminophen/ Hydrocodone Bitart 1 tab 1 tab Q4H PRN PO PAIN Last administered on 07/31/16 17:52; Admin Dose 1 TAB; Start 07/30/16 at 05:00 Dextrose/Sodium Chloride (D5-NS) 1,000 ml @ 100 mls/hr Q10H IV Last administered on 07/31/16 13:25; Admin Dose 100 MLS/HR; Start 07/31/16 at 12:30 Osiel Moore DO Aug 01, 2016 11:49
--- NOTE | 2016-08-03 00:33 | DS ---
DATE OF ADMISSION: 07/31/2016 DATE OF DISCHARGE: 08/01/2016 FINAL DISCHARGE DIAGNOSES: 1. Syncopal episodes, likely secondary to vasovagal syncope. 2. Symptomatic tachycardia. 3. History of multiple sclerosis. CONSULTATIONS DONE DURING THIS HOSPITALIZATION: 1. Cardiology consult, Dr. Moore 2. Neurology consult, Dr. Van. Please note that the patient signed out against medical advice on 08/01/2016. HOSPITAL COURSE: This is a 66-year-old female with history of multiple sclerosis, who presented wit h a complaint of syncopal episodes. She was complaining of dizziness, had a positive orthostatic. The patient had the symptoms while having dinner, so it was thought secondary to a vasovagal syncope . Her case was discussed with Neurology, Dr. Van, who evaluated the patient. She was offered to have multiple sclerosis treatment, but the patient refused to start any disease-modifying treatments . She was subsequently seen by dynamometer tester, Dr. Osiel Moore due to her symptomatic tachycardia, dizziness, and syncopal episode. Her 2D echocardiogram was unremarkable. The patient continues to have tachycardia with a heart rate up to 130s-140s. She also has a positive orthostatic, but the p atient did not want to stay in the hospital, and she signed out against medical advice on 08/01/2016 . DISPOSITION: Please note that the patient signed out against medical advice. She has been explaine d about the possible risks and complications of signing out against medical advice including the pos sible . She understood it and verbalized back to the nursing, Mary, about the risks and compl ications. DISCHARGE MEDICATIONS: No medications given since the patient has signed out against medical advice . Dictated By: DUGLAS YANG MD, KP/KEVIN Conf#: [id number] DID#: [id number]
--- NOTE | 2016-08-03 11:56 | RADRPT ---
Vent Rate: 87 bpm RR Interval: 0 msec SD Interval: 114 msec QRS Duration: 80 msec QT Interval: 340 msec QTC Interval: 409 msec P-R-T [place]: 82 - 74 - 66 degrees Normal sinus rhythm Normal ECG No previous tracing available for comparison Electronically Signed By: Phil Parsons [id number]
== END 2016-08-01 11:50 | disposition left against medical advice (07) | DRG 312 ==
LOC: E/R 23:14 → MS4 07-30 01:52 → OBSVTOIN 07-31 14:59
PROVIDERS: ADMIT Family Medicine; ATTEND Family Medicine
DX: I95.1 Orthostatic hypotension (principal); G35 Multiple sclerosis; R55 Syncope and collapse; F41.9 Anxiety disorder, unspecified; R00.0 Tachycardia, unspecified; I10 Essential (primary) hypertension
CPT/HCPCS: 36415; 70450; 71010; 80048; 82550; 82553; 83735; 84100; 84484; 85025; 85610; 85730; 93005; 93306; 93880; 95819; 96374; G0378; J1650; J1885; J7030; J7042

== ENCOUNTER 2017-03-15 08:29 | Emergency (ER) | payer MEDICARE, BC ==
[~2017-03-15] VITALS: Wt 50.0 kg
[~2017-03-15 08:29] MED LIST: AMI25 PO; AZOP1OP10 BOTH EYES; HYDR-902 PO
[2017-03-15] MEDS ORDERED: ALBUTEROL 0.083% (NEB) 2.5 MG/3 ML AMP HHN STA (08:57)
[2017-03-15] MEDS ORDERED: IPRATROPIUM (NEB) 0.5 MG/2.5 ML AMP HHN ONE (09:00)
--- NOTE | 2017-03-15 10:08 | RADRPT ---
PROCEDURE: XR Chest. CLINICAL INDICATION: Shortness of breath. TECHNIQUE: Single frontal view of the chest was obtained. COMPARISON: None FINDINGS: The soft tissues are normal. There is a mild levo curvature of the lower thoracic spine which is li teddy positional. The heart, cardiomediastinal silhouette and hilar structures are normal. The pulmo nary vasculature is normal. There is a left-sided aorta. The lungs are clear. The costophrenic ang les are normal. IMPRESSION: 1. There is no evidence of active cardiopulmonary disease. RPTAT:AAJJ Physician Mina Date Time Electronically viewed and signed by Jacky Rao Physician on 03/15/2017 10:07 BING/
--- NOTE | 2017-03-15 10:08 | RADRPT ---
PROCEDURE: XR Chest. CLINICAL INDICATION: Shortness of breath. TECHNIQUE: Single frontal view of the chest was obtained. COMPARISON: None FINDINGS: The soft tissues are normal. There is a mild levo curvature of the lower thoracic spine which is li teddy positional. The heart, cardiomediastinal silhouette and hilar structures are normal. The pulmo nary vasculature is normal. There is a left-sided aorta. The lungs are clear. The costophrenic ang les are normal. IMPRESSION: 1. There is no evidence of active cardiopulmonary disease. RPTAT:AAJJ Physician Mina Date Time Electronically viewed and signed by Jacky aRo Physician on 03/15/2017 10:07 BING/
[2017-03-15] MEDS ORDERED: ADV25050 INHALATION (10:21)
[2017-03-15] MEDS ORDERED: ALBU2.5V3 NEB (10:21)
[2017-03-15] MEDS ORDERED: CETI-240 PO (10:21)
--- NOTE | 2017-03-15 10:23 | ERD ---
ER Documentation Chief Complaint Chief Complaint sob, cough hx of copd HPI 66-year-old female presents with cough and shortness of breath worsening over the last week. She denies any productive sputum, fevers. She has a history of MS with pulmonary symptoms. She is unable to take steroids due to side effects. She is out of medications for her nebulizer. She takes Advair in the past as well. Chest pain, vomiting, ROS All systems reviewed and are negative except as per history of present illness. Medications Home Meds Active Scripts Cetirizine Hcl* (Cetirizine Hcl*) 10 Mg Tablet, 10 MG PO DAILY, #30 TAB Prov:NILSON CAMPOS MD 03/15/17 Albuterol Sulfate* (Albuterol Sulfate* Neb) 0.083%-3 Ml Neb, 2.5 MG NEB Q3H Y for WHEEZING AND SOB, #30 VIAL Prov:NILSON CAMPOS MD 03/15/17 Salmeterol Xinaf/Fluticasone* (Advair*) 250-50 Diskus Inhaler, 1 INH INHALATION BID, #1 INHALER Prov:NILSON CAMPOS MD 03/15/17 Reported Medications Brinzolamide (Azopt) 10 Ml Drops.susp, 10 ML BOTH EYES BID 07/30/16 Hydrocodone/Acetaminophen ([place] 10-325 Tablet) 1 Each Tablet, 1 EACH PO BID Y for PAIN, TAB 07/30/16 Amitriptyline Hcl* (Elavil*) 25 Mg Tab, 25 MG PO HS, #30 TAB 07/30/16 Allergies Allergies: Coded Allergies: Penicillins (Verified Allergy, Severe, anaphylactic shock, 03/15/17) ibuprofen (Verified Allergy, Severe, respiratory distress, wheezing, ) shellfish derived (Verified Allergy, Severe, 03/15/17) PMhx/Soc Medical and Surgical Hx: pt denies Medical Hx History of Surgery: Yes (bilateral eye surgery, appendectomy, hysterectomy ) Anesthesia Reaction: No Hx Neurological Disorder: No Hx Respiratory Disorders: No Hx Cardiac Disorders: No Hx Psychiatric Problems: No Hx Miscellaneous Medical Probl: No Hx Alcohol Use: No Hx Substance Use: No Hx Tobacco Use: No Smoking Status: Never smoker Physical Exam Vitals Vital Signs Date Time Temp Pulse Resp B/P Pulse Ox O2 Delivery O2 Flow Rate FiO2 03/15/17 09:06 87 18 96 21 03/15/17 08:30 98.3 104 20 180/86 96 Physical Exam Const: [], Not ill-appearing. Head: Atraumatic Eyes: Normal Conjunctiva ENT: Normal External Ears, Nose and Mouth. TMs oropharynx normal. Neck: Full range of motion..~ No meningismus. Resp: Clear to auscultation bilaterally. Minimal wheezing without rales or retractions appreciated. Cardio: Regular rate and rhythm, no murmurs Abd: Soft, non tender, non distended. Normal bowel sounds Skin: No petechiae or rashes Back: No midline or flank tenderness Ext: No cyanosis, or edema. No calf swelling or Homans sign no edema. Neur: Awake and alert Psych: Normal Mood and Affect Results 24 hrs Current Medications Medications (Trade) Dose Ordered Sig/Emelina Route PRN Reason Start Time Stop Time Status Last Admin Dose Admin Albuterol (Proventil 0.083% (Neb)) 5 mg ONCE STAT N 03/15/17 08:57 03/15/17 08:59 DC 03/15/17 09:06 Ipratropium [place] (Atrovent 0.02% (Neb)) 0.5 mg ONCE ONCE N 03/15/17 09:00 03/15/17 09:01 DC 03/15/17 09:06 Procedures/MDM Chest X-ray 1V Interpreted by me: Soft Tissue: No acute abnormalities Bones: No acute abnormalities Mediastinum/Cardiac Silhouette/Lungs: [No acute abnormalities] patient have normal 1 view chest x-ray EKG: Rate/Rhythm: [Normal Sinus Rhythm] QRS, ST, T-waves: [No changes consistent w/ acute ischemia] Impression: [No evidence of ischemia or arrhythmia]. [place]-EKG without findings of acute ischemia or significant acute arrhythmia. Was given albuterol treatment 1 as well as Atrovent. Patient clear lungs without evidence of hypoxemia, retractions or respiratory distress. Patient appears to have mild chronic lung disease with COPD exacerbation. Will treated with refills of albuterol, Zyrtec and Advair with primary care follow-up and return precautions. The patient was stable with no new complaints during the ER course. Clinically, there is no current evidence to suggest meningitis, sepsis, acute abdomen, pneumonia, acute coronary syndrome, pulmonary embolism, or any other emergent condition appearing to require further evaluation or hospitalization. The patient should certainly return for any new or worsening symptoms per the aftercare instructions. They should otherwise follow-up with her primary care doctor for reevaluation this week. Departure Diagnosis: Primary Impression: Shortness of breath Condition: Stable Patient Instructions: Copd Flare Additional Instructions: X-ray normal. We treated for allergy as well. Recheck for new or worsening symptoms with primary care doctor. NILSON CAMPOS MD Mar 15, 2017 10:23
[2017-03-15 10:43] VITALS: BP 155/78; PULSE 97; RESP 19
== END 2017-03-15 10:46 | disposition home or self-care (01) ==
LOC: FTE 08:29
DX: R06.02 Shortness of breath (principal)
CPT/HCPCS: 71010; 93005; 94664

== ENCOUNTER 2017-05-05 22:25 | Emergency (ER) | payer MEDICARE, BC ==
[~2017-05-05] VITALS: Ht 162.6 cm; Wt 45.5 kg
[~2017-05-05 22:25] MED LIST changes: +ADV25050 INHALATION; +ALBU2.5V3 NEB; +CETI-240 PO
[2017-05-05 22:27] VITALS: Ht 162.6 cm; Wt 45.5 kg
[2017-05-05] MEDS ORDERED: ALBUTEROL 0.083% (NEB) 2.5 MG/3 ML AMP HHN STA (23:35)
[2017-05-06] MEDS ORDERED: IPRATROPIUM (NEB) 0.5 MG/2.5 ML AMP HHN ONE
[2017-05-06] MEDS ORDERED: predniSONE 20 MG TAB PO ONE (00:30)
[2017-05-06] MEDS ORDERED: ALBU2.5V3 NEB (00:42)
--- NOTE | 2017-05-06 00:48 | ERD ---
ER Documentation Chief Complaint Chief Complaint cough,congestion x 3 days, pain in CW w/ cough only HPI This 67-year-old female presents with coughing shortness of breath for the last few days that she feels like is her normal asthma exacerbation. She does not believe that she has any infection. Denies fevers and chills. Has no chest pain. Does not want an EKG does is not her heart. ROS All systems reviewed and are negative except as per history of present illness. Medications Home Meds Active Scripts Albuterol Sulfate* (Albuterol Sulfate* Neb) 0.083%-3 Ml Neb, 2.5 MG NEB Q3H Y for WHEEZING AND SOB, #30 VIAL 1 Refill Prov:RAMO MAYA DO 05/06/17 Cetirizine Hcl* (Cetirizine Hcl*) 10 Mg Tablet, 10 MG PO DAILY, #30 TAB Prov:NILSON CAMPOS MD 03/15/17 Albuterol Sulfate* (Albuterol Sulfate* Neb) 0.083%-3 Ml Neb, 2.5 MG NEB Q3H Y for WHEEZING AND SOB, #30 VIAL Prov:NILSON CAMPOS MD 03/15/17 Salmeterol Xinaf/Fluticasone* (Advair*) 250-50 Diskus Inhaler, 1 INH INHALATION BID, #1 INHALER Prov:NILSON CAMPOS MD 03/15/17 Reported Medications Brinzolamide (Azopt) 10 Ml Drops.susp, 10 ML BOTH EYES BID 07/30/16 Hydrocodone/Acetaminophen ([place] 10-325 Tablet) 1 Each Tablet, 1 EACH PO BID Y for PAIN, TAB 07/30/16 Amitriptyline Hcl* (Elavil*) 25 Mg Tab, 25 MG PO HS, #30 TAB 07/30/16 Allergies Allergies: Coded Allergies: Penicillins (Verified Allergy, Severe, anaphylactic shock, 03/15/17) ibuprofen (Verified Allergy, Severe, respiratory distress, wheezing, ) shellfish derived (Verified Allergy, Severe, 03/15/17) PMhx/Soc History of Surgery: Yes (bilateral eye surgery, appendectomy, hysterectomy ) Anesthesia Reaction: No Hx Neurological Disorder: No Hx Respiratory Disorders: Yes (asthma) Hx Cardiac Disorders: No Hx Psychiatric Problems: No Hx Miscellaneous Medical Probl: No Hx Alcohol Use: No Hx Substance Use: No Hx Tobacco Use: No Smoking Status: Unknown if ever smoked Physical Exam Vitals Vital Signs Date Time Temp Pulse Resp B/P Pulse Ox O2 Delivery O2 Flow Rate FiO2 05/05/17 23:47 106 18 97 21 05/05/17 22:27 97.9 106 18 181/91 97 Physical Exam Const: [] Mild to moderate distress. Head: Atraumatic Eyes: Normal Conjunctiva ENT: Normal External Ears, Nose and Mouth. Neck: Full range of motion.. No JVD Resp: Bilateral expiratory wheezes Cardio: Regular tachycardia, no murmurs Skin: No petechiae or rashes Ext: No cyanosis, or edema Neur: Awake and alert oriented 3, no focal deficits Psych: Normal Mood and Affect Results 24 hrs Current Medications Medications (Trade) Dose Ordered Sig/Emelina Route PRN Reason Start Time Stop Time Status Last Admin Dose Admin Albuterol (Proventil 0.083% (Neb)) 10 mg ONCE STAT HHN 05/05/17 23:35 05/05/17 23:36 DC 05/05/17 23:43 Ipratropium [place] (Atrovent 0.02% (Neb)) 1 mg ONCE ONCE HHN 05/06/17 00:00 05/06/17 00:01 DC 05/05/17 23:43 Prednisone (Prednisone) 60 mg ONCE ONCE PO 05/06/17 00:30 05/06/17 00:40 DC Procedures/MDM Ordered asthma exacerbation and 67-year-old female. She refuses any further workup. I ordered a prednisone tab for which she refused to take it. All she wanted was a breathing treatment and she received a 10 and 1 albuterol Atrovent nebulized treatment. After this she felt 100% better and she was no longer wheezing at all with no respiratory distress. She requests a refill for her home nebulizer which I am providing for her. Primary care follow-up in 2 3 days and strict return precautions. Departure Diagnosis: Primary Impression: Asthma exacerbation Condition: Stable Patient Instructions: Asthma, Acute (Adult) Additional Instructions: Call your primary care doctor TOMORROW for an appointment during the next 2-3 days.See the doctor sooner or return here if your condition worsens before your appointment time. RAMO MAYA DO May 06, 2017 00:48
[2017-05-06 00:50] VITALS: BP 139/100; PULSE 120; RESP 19
== END 2017-05-06 00:50 | disposition home or self-care (01) ==
LOC: E/R 22:25
DX: J45.901 Unspecified asthma with (acute) exacerbation (principal)
CPT/HCPCS: 93005; 94644

== ENCOUNTER 2017-05-16 01:30 | Emergency (ER) | END 2017-05-16 05:23 | disposition left against medical advice (07) ==

== ENCOUNTER 2017-11-20 21:57 | Emergency (ER) | END 2017-11-21 00:36 | disposition home or self-care (01) ==

== ENCOUNTER 2018-08-21 00:45 | Emergency (ER) | payer BC, OTHER ==
[~2018-08-21] VITALS: Ht 162.6 cm; Wt 47.7 kg
[~2018-08-21 00:45] MED LIST changes: +ALBU8.5H8 INH; -CETI-240 PO; +CETI10TA19 PO; +FLUT12HF2 IH; +HYDR-3980 PO; -HYDR-902 PO; +PRED50TA PO
[2018-08-21 01:05] VITALS: Ht 162.6 cm; Wt 47.7 kg
--- NOTE | 2018-08-21 01:15 | ERD ---
ER Documentation Chief Complaint Chief Complaint SOB exacerbated by MS x18 hours HPI The patient is a 68-year-old female, presenting with acute dyspnea for 1 day, has similar symptoms previously, complains of nasal congestion, nasal discharge, cough, denies chest pain, abdominal pain, vomiting, dizzy, diarrhea. She smoked but quitted many years ago Medical history: MS, asthma, glaucoma, hypertension Past surgical history: Appendectomy, hysterectomy, eye ROS All systems reviewed and are negative except as per history of present illness. Medications Home Meds Active Scripts Salmeterol Xinaf-Fluticasone* (Advair HFA*) 45/212 Aerosol Inhaler, 2 INH IH BID, #1 INHALER Prov:AUNG TRINIDAD MD 08/21/18 Albuterol Sulfate* (Proair HFA*) 8.5 Gm Hfa.aer.ad, 2 PUFF INH Q4, #1 INHALER Prov:AUNG TRINIDAD MD 08/21/18 Prednisone* (Prednisone*) 20 Mg Tab, 50 MG PO DAILY for 5 Days, TAB Prov:AUNG TRINIDAD MD 08/21/18 Reported Medications Brinzolamide (Azopt) 10 Ml Drops.susp, 10 ML BOTH EYES BID 07/30/16 Amitriptyline Hcl* (Elavil*) 25 Mg Tab, 25 MG PO HS, #30 TAB 07/30/16 Discontinued Reported Medications Hydrocodone/Acetaminophen ([place] 10-325 Tablet) 1 Each Tablet, 1 EACH PO BID PRN for PAIN, TAB 07/30/16 Discontinued Scripts Prednisone* (Prednisone*) 50 Mg Tablet, 50 MG PO DAILY, #5 TAB Prov:AUNG TRINIDAD MD 11/21/17 Salmeterol Xinaf-Fluticasone* (Advair HFA*) 115/21 Aerosol Inhaler, 2 INH IH BID, #1 INHALER Prov:AUNG TRINIDAD MD 11/21/17 Albuterol Sulfate* (Proair HFA*) 8.5 Gm Hfa.aer.ad, 2 PUFF INH Q4H PRN for WHEEZING AND SOB, #1 INHALER Prov:AUNG TRINIDAD MD 11/21/17 Albuterol Sulfate* (Albuterol Sulfate* Neb) 0.083%-3 Ml Neb, 2.5 MG NEB Q3H PRN for WHEEZING AND SOB, #30 VIAL 1 Refill Prov:RAMO MAYA DO 05/06/17 Cetirizine Hcl* (Cetirizine Hcl*) 10 Mg Tablet, 10 MG PO DAILY, #30 TAB Prov:NILSON CAMPOS MD 03/15/17 Albuterol Sulfate* (Albuterol Sulfate* Neb) 0.083%-3 Ml Neb, 2.5 MG NEB Q3H PRN for WHEEZING AND SOB, #30 VIAL Prov:NILSON CAMPOS MD 03/15/17 Salmeterol Xinaf/Fluticasone* (Advair*) 250-50 Diskus Inhaler, 1 INH INHALATION BID, #1 INHALER Prov:NILSON CAMPOS MD 03/15/17 Allergies Allergies: Coded Allergies: Penicillins (Unverified Allergy, Severe, anaphylactic shock, 08/21/18) ibuprofen (Unverified Allergy, Severe, respiratory distress, wheezing, 08/21/18) shellfish derived (Unverified Allergy, Severe, 08/21/18) PMhx/Soc History of Surgery: Yes (bilateral eye surgery, appendectomy, hysterectomy ) Anesthesia Reaction: No Hx Neurological Disorder: No Hx Respiratory Disorders: Yes (asthma) Hx Cardiac Disorders: No Hx Psychiatric Problems: No Hx Miscellaneous Medical Probl: No Hx Alcohol Use: No Hx Substance Use: No Hx Tobacco Use: Yes (Quit 2005) Smoking Status: Former smoker Physical Exam Vitals Vital Signs Date Temp Pulse Resp B/P (MAP) Pulse Ox O2 O2 Flow FiO2 Time Delivery Rate 08/21/18 98.3 101 20 99/80 (86) 92 Room Air 04:25 08/21/18 98.3 101 21 155/87 92 Room Air 03:00 (109) 08/21/18 98 3.0 01:43 08/21/18 121 22 98 Nasal 3.0 01:43 Cannula 08/21/18 Nasal 3.0 01:11 Cannula 08/21/18 Nasal 3 01:10 Cannula 08/21/18 98.3 120 25 166/107 96 Nasal 01:09 (126) Cannula 08/21/18 98.3 120 25 166/107 96 01:05 (126) Physical Exam Const: No acute distress. Head: Atraumatic. Eyes: Normal Conjunctiva. ENT: Normal External Ears, Nose and Mouth. Neck: Full range of motion. No meningismus. Resp: Tachypneic, bilateral expiratory wheezes Cardio: Regular rate and rhythm. Abd: Soft, non distended, normal bowel sounds, non tender. Skin: No petechiae or rashes. Back: No midline or flank tenderness. Ext: No cyanosis, or edema. Neur: Awake and alert. No focal deficit Psych: Normal Mood and Affect. Result Diagram: 08/21/18 0153 08/21/18 0153 Results 24 hrs Laboratory Tests Test 08/21/18 01:53 White Blood Count 6.1 10^3/ul Red Blood Count 4.78 10^6/ul Hemoglobin 14.9 g/dl Hematocrit 45.5 % Mean Corpuscular Volume 95.2 fl Mean Corpuscular Hemoglobin 31.2 pg Mean Corpuscular Hemoglobin Concent 32.7 g/dl Red Cell Distribution Width 12.6 % Platelet Count 236 10^3/UL Mean Platelet Volume 10.1 fl Immature Granulocytes % 0.300 % Neutrophils % 83.1 % Lymphocytes % 5.0 % Monocytes % 10.3 % Eosinophils % 1.0 % Basophils % 0.3 % Nucleated Red Blood Cells % 0.0 /100WBC Immature Granulocytes # 0.020 10^3/ul Neutrophils # 5.1 10^3/ul Lymphocytes # 0.3 10^3/ul Monocytes # 0.6 10^3/ul Eosinophils # 0.1 10^3/ul Basophils # 0.0 10^3/ul Nucleated Red Blood Cells # 0.0 10^3/ul Sodium Level 143 mmol/L Potassium Level 4.1 mmol/L Chloride Level 104 mmol/L Carbon Dioxide Level 28 mmol/L Anion Gap 11 Blood Urea Nitrogen 7 mg/dl Creatinine 0.60 mg/dl Est Glomerular Filtrat Rate mL/min > 60 mL/min Glucose Level 154 mg/dl Calcium Level 10.5 mg/dl Current Medications Medications Dose Sig/Emelina Start Time Status Last (Trade) Ordered Route PRN Stop Time Admin Dose Reason Admin 5 mg ONCE STAT 08/21/18 DC 08/21/18 Levalbuterol INH :34 01:43 (Xopenex 08/21/18 01:37 Neb) Ipratropium 1 mg ONCE STAT 08/21/18 DC 08/21/18 [place] INH :34 01:43 (Atrovent 08/21/18 01:37 0.02% (Neb)) 125 mg ONCE STAT 08/21/18 DC 08/21/18 Methylprednis IV 01:34 02:03 olone Sodium 08/21/18 01:37 Succinate (Solu-Medrol) Sodium 1,000 ml @ Q1H ONCE 08/21/18 DC 08/21/18 Chloride 1,000 mls/hr IV 02:00 02:04 08/21/18 02:59 Procedures/MDM [place] [id number] Radiology Main Line: [phone] DIAGNOSTIC IMAGING REPORT Patient: RAMBO BLACK : 1950 Age: 68 Sex: F MR #: [id number] DOS: 08/21/18 0134 Ordering MD: AUNG TRINIDAD MD Location: E/R Room/Bed: PROCEDURE: XR Chest. CLINICAL INDICATION: Shortness of breath TECHNIQUE: Portable single view of the chest COMPARISON: [facility] CHEST 01/23/2018; CHEST 11/20/2017; CHEST 03/15/2017; CR CHEST 07/30/2016 FINDINGS: The lungs may again be mildly hyperinflated. There is no new infiltrate, overt CHF including pleural effusion, or pneumothorax seen. The heart size and mediastinal contours are stable and within normal limits. There is mild aortic arch atherosclerotic calcification again present. Mild leftward curvature of the thoracolumbar spine. No acute displaced fracture is seen. IMPRESSION: No new acute process seen within the chest. Calcified aortic atherosclerosis. RPTAT: [facility] Physician Zackery Date Time Electronically viewed and signed by Physician Zackery on 08/21/2018 03:05 RF/ CC: AUNG TRINIDAD MD [id number] MEDICAL MAKING DECISION: The patient is a 68-year-old female, presenting with acute asthma exacerbation, was treated with Xopenex 5 mg, Atrovent 1 mg and Solu-Medrol 125 mg IV for acute asthma with good response. However she is still tachypneic and is having bilateral expiratory wheezes, and unstable for discharge The differential diagnoses considered include but are not limited to asthma, COPD, pneumonia, pulmonary embolus, pleural effusion, congestive heart failure. Departure Diagnosis: Primary Impression: Asthma exacerbation Condition: Serious Comments I recommended admission however patient declined She was given prescription for prednisone, albuterol, Advair The patient signed out AGAINST MEDICAL ADVICE. Risks, benefits, alternatives were explained to the patient. Risks include but not limited to and permanent disability Disclaimer: Inadvertent spelling and grammatical errors are likely due to EHR/dictation software use and do not reflect on the overall quality of patient care. Also, please note that the electronic time recorded on this note does not necessarily reflect the actual time of the patient encounter. AUNG TRINIDAD MD Aug 21, 2018 01:15
[2018-08-21] MEDS ORDERED: LEVALBUTEROL (NEB) 1.25 MG/0.5 ML AMP INH STA (01:34)
[2018-08-21] MEDS ORDERED: METHYLPREDNISOLONE 125 MG INJ IV STA (01:34)
[2018-08-21] MEDS ORDERED: IPRATROPIUM (NEB) 0.5 MG/2.5 ML AMP INH STA (01:34)
[2018-08-21] MEDS ORDERED: SOD CHLORIDE 0.9% 1,000 ML IV ONE (02:00)
[2018-08-21] MEDS ORDERED: PRED20TA PO (03:50)
[2018-08-21] MEDS ORDERED: FLUT12HF IH (03:50)
[2018-08-21] MEDS ORDERED: ALBU8.5H8 INH (03:50)
[2018-08-21 04:25] VITALS: BP 99/80; PULSE 101; RESP 20
== END 2018-08-21 04:30 | disposition left against medical advice (07) ==
LOC: E/R 00:45
DX: J45.901 Unspecified asthma with (acute) exacerbation (principal); I10 Essential (primary) hypertension; Z87.891 Personal history of nicotine dependence
CPT/HCPCS: 71045; 80048; 85025; 94644; 96374; 99284; J2930; J7030